=== PATIENT | female | born 1990 | race Caucasian/White ===

== ENCOUNTER 2017-06-24 19:24 | Emergency (ER) | payer MEDICAID ==
[~2017-06-24] VITALS: Ht 167.6 cm; Wt 50.3 kg
[2017-06-24 19:27] VITALS: BP 98/59
[2017-06-24] MEDS ORDERED: diphenhydrAMINE HCL 50 MG CAPSULE ONE (20:22)
[2017-06-24] MEDS ORDERED: DEXAMETHASONE SOD PHOSPHATE 4 MG/ML VIAL ONE (20:22)
[2017-06-24] MEDS ORDERED: diphenhydrAMINE HCL 25 MG CAPSULE ONE (20:25)
[2017-06-24] MEDS ORDERED: diphenhydrAMINE HCL 25 MG CAPSULE PO ONE (20:30)
[2017-06-24] MEDS ORDERED: DEXAMETHASONE SOD PHOSPHATE 4 MG/ML VIAL IM ONE (20:30)
[2017-06-24] MEDS ORDERED: methylPREDNISolone SOD SUCC 40 MG/ML VIAL IV ONE (20:30)
== END 2017-06-24 20:33 | disposition home or self-care (01) ==
LOC: ER 19:27
DX: L50.9 Urticaria, unspecified (principal)
CPT/HCPCS: 96372; 99283; A4606; J1100; Q0163; Z7610

== ENCOUNTER 2018-06-17 18:19 | Emergency (ER) | payer OTHER ==
[~2018-06-17] VITALS: Ht 167.6 cm; Wt 48.5 kg
[2018-06-17 18:27] VITALS: BP 144/87
== END 2018-06-17 19:02 | disposition home or self-care (01) ==
LOC: ER 18:23
DX: J40 Bronchitis, not specified as acute or chronic (principal)
CPT/HCPCS: 99283; A4606; Z7610; Z7502